=== PATIENT | male | born 1975 | race Caucasian/White ===

== ENCOUNTER → 2021-03-29 | Outpatient (CLI) | payer OTHER ==
[~2021-03-29] MED LIST: BUPIVACAINE/PF 0.5% 30ML VIAL ONE; SYNTHROID PO
== END | disposition home or self-care (01) ==
LOC: RAH 09:34
PROVIDERS: ATTEND Student in an Organized Health Care Education/Training Program
DX: K35.32 Acute appendicitis with perforation, localized peritonitis, and gangrene, without abscess (principal); R18.8 Other ascites
CPT/HCPCS: 74176; J3490

== ENCOUNTER → 2021-04-03 | Outpatient (CLI) | payer BC ==
[~2021-04-03] MED LIST changes: -BUPIVACAINE/PF 0.5% 30ML VIAL ONE
[2021-04-03 12:05] LABS: BASOPHILS % (AUTO) 0.3 % (0.0-5.0); EOSINOPHILS % (AUTO) 1.1 % (0.0-8.0); HEMATOCRIT 46.4 % (42-54); LYMPHOCYTES % (AUTO) 9.6 % (21.0-51.0); MEAN CORPUSCULAR HEMOGLOBIN 31.6 pg (27.0-33.0); MEAN CORPUSCULAR HGB CONC 32.3 g/dL (32.0-36.0); MEAN CORPUSCULAR VOLUME 97.9 fL (79-99); MONOCYTES % (AUTO) 8.4 % (3.0-13.0); NEUTROPHILS % (AUTO) 79.8 % (40.0-77.0); PLATELET COUNT (AUTO) 241 K/uL (130-400); RED BLOOD CELL COUNT(AUTO) 4.74 MIL/uL (4.50-6.20); RED CELL DISTRIBUTION WIDTH 13.2 % (11.0-15.5); WHITE BLOOD COUNT (AUTO) 10.1 K/uL (4.8-10.8)
== END | disposition home or self-care (01) ==
LOC: LAB 11:20
PROVIDERS: ATTEND Student in an Organized Health Care Education/Training Program
DX: K35.80 Unspecified acute appendicitis (principal)
CPT/HCPCS: 36415; 85025

== ENCOUNTER → 2021-04-19 | Outpatient (CLI) | payer BC ==
[~2021-04-19] MED LIST changes: +DIATR MEGLU/DIATRIZOATE SODIUM 30 ML BOTTLE ONE; +IOHEXOL-350 75 ML VIAL IV ONE
[2021-04-19 12:13] LABS: BASOPHILS % (AUTO) 0.6 % (0.0-5.0); EOSINOPHILS % (AUTO) 1.2 % (0.0-8.0); LYMPHOCYTES % (AUTO) 27.7 % (21.0-51.0); MEAN CORPUSCULAR HEMOGLOBIN 31.7 pg (27.0-33.0); MEAN CORPUSCULAR HGB CONC 33.5 g/dL (32.0-36.0); MEAN CORPUSCULAR VOLUME 94.5 fL (79-99); NEUTROPHILS % (AUTO) 61.3 % (40.0-77.0); PLATELET COUNT (AUTO) 192 K/uL (130-400); RED BLOOD CELL COUNT(AUTO) 5.08 MIL/uL (4.50-6.20); WHITE BLOOD COUNT (AUTO) 5.1 K/uL (4.8-10.8)
[2021-04-19 12:29] LABS: CREATININE 1.4 mg/dL (0.5-1.5); POTASSIUM 4.8 mmol/L (3.5-5.1)
== END | disposition home or self-care (01) ==
LOC: RAH 11:38
PROVIDERS: ATTEND Thoracic Surgery (Cardiothoracic Vascular Surgery)
DX: R10.9 Unspecified abdominal pain (principal)
CPT/HCPCS: 36415; 74177; 80048; 85025; Q9963; Q9967

== ENCOUNTER → 2025-01-26 | Outpatient (CLI) | payer SELFPAY ==
[~2025-01-26] MED LIST changes: -DIATR MEGLU/DIATRIZOATE SODIUM 30 ML BOTTLE ONE; +IOHEXOL-350 50ML VIAL IV ONE; -IOHEXOL-350 75 ML VIAL IV ONE
--- NOTE | 2025-01-26 12:35 | HMCIMG ---
IVP W/WO TOMOGRAMS REASON: UNSPECIFIED ABDOMINAL PAIN. COMPARISON: CT from January 22, 2025 TECHNIQUE: Frontal projection of the abdomen was obtained as a block cutter image for the IVP with tomography study. Patient was given 100 cc of Omnipaque for the IVP with tomograms study. FINDINGS: A nonspecific bowel gas pattern is seen. Large amount of fecal material is seen. Prompt bilateral equal opacification of both kidneys are seen after intravenous contrast administration. There is simple left renal cyst measuring 2.1 x 2 cm. No hydronephrosis or obstruction is seen. Bladder is moderately distended with tiny amount of postvoid residual. IMPRESSION: No obstruction is seen.
== END | disposition home or self-care (01) ==
LOC: RAH 09:36
PROVIDERS: ATTEND Urology
DX: N28.1 Cyst of kidney, acquired (principal); R10.9 Unspecified abdominal pain; R19.5 Other fecal abnormalities
CPT/HCPCS: 74400; Q9967

== ENCOUNTER → 2025-06-17 | Outpatient (CLI) | payer OTHER ==
[~2025-06-17] MED LIST changes: -IOHEXOL-350 50ML VIAL IV ONE
--- NOTE | 2025-06-17 11:02 | HMCIMG ---
US ABDOMINAL COMPLETE REASON: abnormal results of liver function studies prior CT on 01/22/2025. COMPARISON: None FINDINGS: There is grade 1 hepatic steatosis the liver. The liver length is 17.7 cm.. There are no focal mass lesions. The liver is not enlarged.There is a normal-appearing gallbladder. The gallbladder wall thickness is 0.2 cm. The common bile duct measures 0.4 cm. The common bile duct appears to be normal. Kidneys appear normal in size and appearance. The right kidney measures 12.5 x 5.1 x 4.2 cm. The left kidney measures 12.4 x 4.9 x 4.97. The left kidney is a cortical cyst measuring 1.5 cm. There is no evidence of mass, stone or hydronephrosis. Spleen is mildly enlarged with no lesion seen. The spleen length is 12.9 cm.. Aorta and inferior vena cava appear normal. The pancreas appears normal as well. IMPRESSION: Grade 1 hepatic steatosis of the liver Mild splenomegaly. Otherwise normal upper abdomen sonogram
== END | disposition home or self-care (01) ==
LOC: RAH 09:07
PROVIDERS: ATTEND Internal Medicine Gastroenterology
DX: K76.0 Fatty (change of) liver, not elsewhere classified (principal); R16.1 Splenomegaly, not elsewhere classified; R94.5 Abnormal results of liver function studies
CPT/HCPCS: 76700